=== PATIENT | female | born 1945 | race Caucasian/White ===

== ENCOUNTER → 2019-03-30 10:39 | Outpatient (CLI) | payer MEDICARE, SELFPAY ==
--- NOTE | 2019-03-30 10:59 | XR_ITS ---
XR DEXA axial skeleton HISTORY: ITS.REASON: OSTEOPENIA ORDERING PHYSICIAN: Rojas Browning MD PATIENT AGE: 74 years COMPARISON: None FINDINGS: There are degenerative changes in the lumbar spine causing false elevation of the bone measurement. The BMD measured at the left femoral neck is 0.787 g/cm squared with a T score of -1.8. This is considered Osteopenic according to the World Health Organization criteria. Fracture risk is mild to moderate. Treatment is advised. IMPRESSION: Osteopenia.
== END ==
PROVIDERS: PCP Family Medicine; Visit Provider Family Medicine
DX: M85.89 Other specified disorders of bone density and structure, multiple sites (principal)
CPT/HCPCS: 77080

== ENCOUNTER → 2019-11-30 10:24 | Outpatient (CLI) | payer MEDICARE, SELFPAY ==
--- NOTE | 2019-11-30 10:30 | XR_ITS ---
PROCEDURE: XR LUMBAR SPINE MIN 4V CLINICAL INDICATION: SIJ PAIN Left-sided low back pain COMPARISON: No exams were available for comparison FINDINGS: Mild lumbar scoliosis convex left with multilevel degenerative disc disease with the lower thoracic spine, thoracolumbar junction, L2-L3, L3-L4, L4-5, and L5-S1, there is 5 mm anterolisthesis of L4 on L5. Facet arthritic changes are present at L4 and L5. There is prominent sclerosis of the endplates at L3 and L4.. No acute fracture or dislocation. IMPRESSION: Multilevel lumbar spondylosis with degenerative disc disease and facet arthritic change and levoscoliosis Dictated by: Allan Fernandez MD 11/30/2019 10:44 Electronically signed by Allan Fernandez MD in [facility] 11/30/2019 10:44
== END ==
PROVIDERS: PCP Family Medicine; Visit Provider Family Medicine
DX: M53.3 Sacrococcygeal disorders, not elsewhere classified (principal)
CPT/HCPCS: 72110

== ENCOUNTER 2019-12-10 10:00 | Outpatient (RCR) | payer MEDICARE, SELFPAY ==
--- NOTE | 2019-12-10 11:36 | HMH.PTOPEV ---
PT Outpatient Evaluation Rehab PT Outpatient Evaluation Start: 12/10/19 10:08 Freq: Status: Active Protocol: Document 12/10/19 11:24 KARAN (Rec: 12/10/19 11:35 PHORNE [id number]) Electronically Signed By Dawson Schultz, PT 12/10/19 11:24 Outpatient Therapy Subjective History Subjective History Pt is 74 yowf who presents with L post hip/low back pain x ~ 2-3 wks with insidious onset of symptoms. She had X- ray performed which shows L4 on L5 anteriolisthesis, DDD, and lumbar scoliosis convex L. She reports pain is intermittent and worse with transfers or walking. She reports no c/o numbness or tingling. She has PMH of HTN and osteopenia. Chief Complaint Pain,Stiff Symptom Type Ache,Sharp Symptoms Relieved By Rest/Positioning Symptoms Aggravated By Walking Prior Functional Limitations None Current Functional Limitations Standing,Sitting,Recreation Activity,Walking Symptom Description Intermittent,Activity Dependent Level of pain today (0-10) 0 Pain scale - at its worst (0-10) 7 Lumbopelvic Eval Assistive device Assistive Devices Straight Cane Palapation tenderness left buttock tenderness Yes Lumbar/Sacral Palpation Findings Tenderness Accessory Movement L-spine Vertebrae Accessory Movements Central P/A [place] that Elicit Symptoms L4 bilateral L5 bilateral S1 bilateral Range of Motion Lumbar Spine Active Flexion Range of 0-55 Motion (degrees) Lumbar Spine Active Extension Range of 0-5 Motion (degrees) Left Lumbar Spine Lateral Flexion Active 0-10 Range of Motion (degrees) Right Lumbar Spine Lateral Flexion 0-10 Active Range of Motion (degrees) Manual Muscle Test Bilateral Knee Extension Strength Grade 5 Normal Knee Flexion Strength Grade 5 Normal Hip Flexion Strength Grade 4 Good Hip Abduction Strength Grade 4 Good Extensor Hallucis Longus Strength Grade 5 Normal Ankle Dorsiflexion Strength Grade 5 Normal Gastronemius/Soleus Strength Grade 5 Normal Special Tests Hip Scouring (Quadrant) Test Negative Left,Negative Right Hip Yemi (RYNE) Test Negative Left,Negative Right Hip Piriformis Test Negative Right,Positive Left Hip Bowstring (Cram) Test Positive Left,Positive Right
== END 2019-12-10 10:20 | disposition home or self-care (01) ==
LOC: PT 10:00
PROVIDERS: PCP Family Medicine; Visit Provider Family Medicine
DX: M53.3 Sacrococcygeal disorders, not elsewhere classified (principal)
CPT/HCPCS: 97010; 97014; 97110; 97163; G0283

== ENCOUNTER 2020-02-25 10:00 | Outpatient (RCR) | payer MEDICARE, SELFPAY | END 2020-02-25 10:05 | disposition home or self-care (01) | LOC: PT 10:00 | PROVIDERS: PCP Family Medicine; Visit Provider Orthopaedic Surgery | DX: S42.201D Unspecified fracture of upper end of right humerus, subsequent encounter for fracture with routine healing (principal); S62.102D Fracture of unspecified carpal bone, left wrist, subsequent encounter for fracture with routine healing | CPT/HCPCS: 97010; 97014; 97033; 97110; 97140; 97163; 97164; 97530; G0283 ==

== ENCOUNTER → 2020-11-03 11:20 | Outpatient (CLI) | payer MEDICARE, SELFPAY ==
[2020-11-03 12:43] LABS: Coronavirus 19 IgG Antibody Negative (Negative); Coronavirus 19 IgM Antibody Negative (Negative)
== END ==
PROVIDERS: Visit Provider Internal Medicine Gastroenterology
DX: Z01.812 Encounter for preprocedural laboratory examination (principal); Z20.822 Contact with and (suspected) exposure to COVID-19; Z12.11 Encounter for screening for malignant neoplasm of colon; Z86.010 Personal history of colon polyps
CPT/HCPCS: 36415; 86328; 88305

== ENCOUNTER 2020-11-04 08:12 | Day surgery (SDC) | payer MEDICARE, SELFPAY ==
[2020-10-27 13:52] VITALS: BMI 29.2
[2020-11-04 09:05] VITALS: BP 169/75; PULSE 95; RESP 18; TEMP 36.5; O2SAT 97
[2020-11-04 09:43] VITALS: O2SAT 97
[2020-11-04 10:05] VITALS: BP 112/50; PULSE 74; RESP 16; TEMP 36.3; O2SAT 98
--- NOTE | 2020-11-04 10:06 | HMH.PROC ---
[facility] Procedure Note Procedure Note:: Colonoscopy Procedure Report: Colonoscopy with cold snare polypectomy Endoscopist: Josh Castro II, MD Referring physician: Yassine Browning MD Date of Procedure: November 04, 2020 Equipment: Olympus 180 variable stiffness pediatric colonoscope Sedation: MAC sedation Indication: Mrs. Gamino is a 75-year-old female who is here for follow-up screening/surveillance colonoscopy. The patient does state that her brother had colon cancer at the age of 72. She had a colonoscopy in 2006 and had a single polyp (tubular adenoma) removed. Her last colonoscopy with co in November 2015 revealed a single polyp (hyperplastic polyp) removed. She reports no abdominal pain, weight loss, change in her bowel habits or rectal bleeding. Procedure: Prior to the procedure, a history and physical exam was performed, and patient's medications and allergies were reviewed. The risks, benefits and alternatives of the sedation and procedure were discussed with the patient. All questions were answered and informed consent was obtained. The patient was brought to the procedure room. Patient identification and proposed procedure were verified by the physician and the nurse. The patient was placed in a left lateral decubitus position and the scope was passed under direct vision. Throughout the procedure, the patient's blood pressure, pulse, and oxygen saturations were monitored continuously. The colonoscopy was accomplished without difficulty. The patient tolerated the procedure well. Findings: On digital rectal examination there was normal rectal tone. There were no external hemorrhoids. The colonoscope was introduced through the anal canal to the rectum and advanced to the cecum. The ileocecal valve and appendiceal orifice were identified. The scope was advanced a short distance into the ileum which appeared grossly normal. The scope was then withdrawn into the colon. The cecum was normal. There was 2 diminutive polyps in the ascending colon that were 3 and 4 mm both removed via cold snare polypectomy. The remaining transverse, descending, sigmoid and rectum were grossly normal. There were no mucosal abnormalities identified. Upon retroflexion within the rectum there were grade 1 internal hemorrhoids.The preparation was excellent throughout with [place] Preparation Score of 9. The cecal time was 12 minutes. Impression: 1. Diminutive colonic polyps x2 2. Grade 1 internal hemorrhoids Plan: I will follow up the polyp histology. If these are non-adenomatous polyps, I do not feel that she will require any further preventive/surveillance colonoscopy.
[2020-11-04 10:15] VITALS: BP 137/88; PULSE 85; RESP 16; TEMP 36.3; O2SAT 97
[2020-11-04 10:25] VITALS: BP 151/81; PULSE 73; RESP 16; TEMP 36.3; O2SAT 96
[2020-11-04 10:40] VITALS: BP 161/58; PULSE 68; RESP 18; TEMP 36.3; O2SAT 96
--- NOTE | 2020-11-04 10:45 | HMH.ANESCL ---
[facility] Anesthesia Checklist - Structural Data Admitted From: Home Planned Operative Procedure/s: colon Consent for Planned Operative Procedure(s) Verified: Yes Verified Documents: Surgical Consent - Anesthesia Plan Anesthesia Risk discussed: Yes Anesthesia Plan: Verified ASA Class: II Anesthesia Type: General [facility] History Medical History: Reports:: Hyperlipidemia, Hypertension Denies:: Anxiety, Cancer, Depression, Diabetes Mellitus Type 1, Diabetes Mellitus Type 2, Hiatal Hernia, Internal Pacemaker, Lung Disease, MRSA, Seizures *Have you ever received a pneumonia vaccine?: Yes *Have you received a flu vaccine this season?: Yes Other Medical History: Reports: Arthritis Anesthesia experience/problems:: none Laterality Cases: Left: Other, Right: Arthroscopy Shoulder Other Surgeries: No: Pacemaker Amputation: No Fractures: Yes - *Social History Last grade of school completed: Advanced degree Smoking Status: Never smoker Alcohol Intake: never Substance Use Type: denies use *Occupational Status:: retired Housing: house *Travel in the last 8 weeks: None - Psychiatric History Pschychiatric History:: Denies:: Anxiety, Depression Family Hx:: Cancer, Coronary Artery Disease, Hypertension
== END 2020-11-04 10:40 | disposition home or self-care (01) ==
LOC: OUTP 08:14
PROVIDERS: PCP Family Medicine; Visit Provider Internal Medicine Gastroenterology
PROC: 0DJD8ZZ Inspection of Lower Intestinal Tract, Via Natural or Artificial Opening Endoscopic (ICD-10-PCS; CPT 45378; principal; 2020-11-04 09:30)
DX: Z12.11 Encounter for screening for malignant neoplasm of colon (principal); Z80.0 Family history of malignant neoplasm of digestive organs; Z86.010 Personal history of colon polyps; K63.5 Polyp of colon; K64.0 First degree hemorrhoids; I10 Essential (primary) hypertension; E78.5 Hyperlipidemia, unspecified; K21.9 Gastro-esophageal reflux disease without esophagitis; Z79.82 Long term (current) use of aspirin; Z79.899 Other long term (current) drug therapy
CPT/HCPCS: 45385; 88305

== ENCOUNTER → 2021-12-18 09:04 | Outpatient (CLI) | payer MEDICARE, SELFPAY ==
--- NOTE | 2021-12-18 09:09 | XR_ITS ---
FINAL REPORT TECHNIQUE: Bone densitometry calculations of the lumbar spine and left hip were obtained. CLINICAL HISTORY: osteopenia FINDINGS: Using L1-4, the bone mineral density of the spine is 1.132 g/cm2, corresponding to T-score of 0.8. These values may be falsely elevated secondary to hypertrophic change. Using the left hip, the bone mineral density of the femoral neck is 0.643 g/cm2, corresponding to a T-score of -2.5. IMPRESSION: Osteoporosis: Lowest T-score is at or below -2.5. This patient's T-score meets the World Health Organization criteria for osteoporosis. Reviewed, Interpreted and Dictated by Oneil Duff III, MD Transcribed by Katja Simons Authenticated by Oneil Duff III, MD on 12/18/2021 11:12:13 AM [facility]
== END ==
PROVIDERS: PCP Family Medicine; Visit Provider Family Medicine
DX: M81.0 Age-related osteoporosis without current pathological fracture (principal)
CPT/HCPCS: 77080

== ENCOUNTER 2022-08-28 16:04 | Emergency (ER) | payer MEDICARE, SELFPAY ==
--- NOTE | 2022-08-28 16:01 | ECG_ITS ---
APPROVED REPORT Exam: Resting ECG HR:78 bpm ECG Measurements Heart Rate 78 AXES TX 219 P 63 QRSd 88 QRS 8 QT 346 T 58 QTc 379 Conclusion SINUS RHYTHM WITH FIRST DEGREE AV BLOCK LOW QRS VOLTAGE IN PRECORDIAL LEADS [QRS DEFLECTION < 1.0 mV IN CHEST LEADS] ABNORMAL ECG UNCONFIRMED REPORT Electronically signed by : Caleb Zavala MD 08/30/2022 20:15:20
[2022-08-28 16:05] VITALS: BP 168/88; PULSE 88; RESP 16; TEMP 37.2; O2SAT 99; BMI 29.7
[2022-08-28 16:14] VITALS: BMI 29.7
--- NOTE | 2022-08-28 16:23 | XR_ITS ---
PROCEDURE INFORMATION: Exam: XR Chest Exam date and time: 08/28/2022 4:32 PM Age: 77 years old Clinical indication: Right-sided and left-sided; Patient HX: Chest pain under both breast TECHNIQUE: Imaging protocol: Radiologic exam of the chest. Views: 2 views. COMPARISON: No relevant prior studies available. FINDINGS: Lungs: No evidence of pneumonia or interstitial edema. Pleural spaces: Small left pleural effusion. Heart/Mediastinum: Unremarkable. No cardiomegaly. Bones/joints: Status post ORIF of right humeral fracture IMPRESSION: 1. No evidence of pneumonia or interstitial edema. 2. Small left pleural effusion.
[2022-08-28 16:30] VITALS: BP 145/74; PULSE 74; RESP 16; O2SAT 98
[2022-08-28 16:39] LABS: Basophils # 0.1 K/mm3 (0-0.2); Basophils % 0.8 % (0.1-2.0); Eosinophils # 0.1 K/mm3 (0.0-0.4); Hematocrit 40.2 % (37.0-47.0); Hemoglobin 12.8 g/dL (12.2-16.2); Lymphocytes # 1.3 K/mm3 (0.7-4.5); Lymphocytes % 13.5 % (10-50); Mean Corpuscular HGB Conc 31.8 g/dL (31.8-35.4); Mean Corpuscular Hemoglobin 30.1 pg (27.0-31.2); Mean Corpuscular Volume 94.5 fl (81-99); Mean Platelet Volume 7.7 fl (7.4-10.4); Monocytes # 0.4 K/mm3 (0.1-1.0); Neutrophils # 7.6 K/mm3 (1.8-7.8); Neutrophils % 80.7 % (37.0-80.0); Platelet Count 333 K/mm3 (142-424); Red Blood Count 4.26 M/mm3 (4.20-5.40); Red Cell Distribution Width 12.9 % (11.5-17.5); White Blood Count 9.4 K/mm3 (4.8-10.8)
[2022-08-28 16:40] LABS: Chloride 99 mmol/L (98-107); Potassium 3.9 mmoL/L (3.5-5.1); Sodium 135 mmol/L (136-145)
[2022-08-28 16:43] LABS: Anion Gap 13.9 mEq/L (5-15); Blood Urea Nitrogen 20 mg/dl (7-17); Calcium 9.8 mg/dl (8.4-10.2); Carbon Dioxide 26 mmol/L (22.0-30.0); Creatinine Clearance Estimated 44 mL/min (50-200); Estimated Glomerular Filt Rate 40 ml/min (>60); GFR (African American) 48 ML/MIN (>60); Glucose 103 mg/dl (74-100)
--- NOTE | 2022-08-28 16:59 | PC.NURSE ---
Rounded on pt at this time. Pt advised pain is in her epigastric area but has eased up. No other needs at this time. Updated on her POC
[2022-08-28 17:00] VITALS: BP 180/79; PULSE 70; RESP 16; O2SAT 98
[2022-08-28 17:14] LABS: Troponin I < 0.01 ng/ml (0.00-0.034)
[2022-08-28 17:32] VITALS: BP 142/72; PULSE 66; RESP 14; O2SAT 98
[2022-08-28 18:01] VITALS: BP 133/70; PULSE 79; RESP 20; O2SAT 97
--- NOTE | 2022-08-28 18:14 | PC.NURSE ---
rounded on pt at this time. Updated pt and son on lab results. Pt advised she was pain free at this time.
--- NOTE | 2022-08-28 18:27 | HMH.EDGENADL ---
Discharge Plan Disposition Patient Disposition: Home, Self-Care Condition: Good Prescriptions Prescriptions: No Action simvastatin 40 mg tablet 40 mg PO DAILY 30 Days Qty: 30 omeprazole 20 mg capsule,delayed release(DR/EC) 20 mg PO DAILY 30 Days Qty: 30 naproxen 500 mg tablet 500 mg PO DAILY 30 Days Qty: 30 hydrochlorothiazide 25 mg tablet 12.5 mg PO DAILY 90 Days Qty: 90 aspirin 81 MG tablet,delayed release (DR/EC) 81 mg PO DAILY risedronate 35 MG tablet 35 mg PO WEEKLY coenzyme Q10 100 MG capsule 100 mg PO DAILY Activity Restrictions/Add. Instructions Additional Instructions/Restrictions: Additional instructions for CHEST PAIN: See your physician as soon as possible for further evaluation. Return immediately if worsening chest pain, vomiting, shortness of breath, fever, coughing of blood. Clinical Impressions Clinical Impression: Atypical chest pain Instructions Patient Instructions: DI for Atypical Chest Pain Discharge ED Provider: Jerome Jones General Adult HPI General Chief complaint: Chest Pain Stated complaint: chest pain Time Seen by Provider: 08/28/22 18:30 Mode of Arrival: Ambulatory Limitations: No Limitations Description of Symptoms (Recalled from ER Triage Doc. by RN): pt advises when she woke up this am she noticed some pain under right breast. She went on to the store and the pain continued to remain constant and she felt a dull ache in her back also. Pt denies any SOA or any other symptoms. History of Present Illness HPI narrative: Complains of chest pain since 830 this morning. She says it was under her left breast. It radiated around to the right side under her right breast and around the back. Denies shortness of breath or increased pain with breathing. Denies cough or fever. Denies nausea or vomiting. She says that at one point she felt a little sweaty, but not persistently throughout the day. She saw Dr. Diggs in the office today and he sent her to the emergency department. The pain was constant all day until she arrived in the emergency department and is now gone. No prior similar pain. She has no known cardiac problems or pulmonary problems. She is a non-smoker. She does have hypertension and hyperlipidemia. She does not have diabetes. She says her mother and sister had hypertension. Her sister having a cardiac stent placed. Related Data Home Medications Medication Instructions Recorded Confirmed hydrochlorothiazide 25 mg tablet 12.5 mg PO DAILY fluid/bp 90 days 07/02/18 11/04/20 #90 tabs naproxen 500 mg tablet 500 mg PO DAILY Pain 30 days #30 07/02/18 11/04/20 tabs omeprazole 20 mg capsule,delayed 20 mg PO DAILY stomach 30 days #30 07/02/18 11/04/20 release caps simvastatin 40 mg tablet 40 mg PO DAILY Cholesterol 30 days 07/02/18 11/04/20 #30 tabs aspirin 81 mg tablet,delayed 81 mg PO DAILY Heartburn 10/27/20 11/04/20 release coenzyme Q10 100 mg capsule 100 mg PO DAILY absorption 10/27/20 11/04/20 risedronate 35 mg tablet 35 mg PO WEEKLY Osteoporosis 10/27/20 11/04/20 Allergies Allergy/AdvReac Type Severity Reaction Status Date / Time No Known Allergies Allergy Verified 08/28/22 17:45 PFSH PFS Social History Smoking Status: Never smoker second hand exposure: No alcohol intake: never substance use type: denies use current occupational status: retired Travel in the last 8 weeks: None housing: house current occupational exposures/hazards: No caffeine: Yes ROS Obtained: Yes Systems reviewed as appropriate & no additional complaints except as documented Constitutional Constitutional: Denies fever(s), Denies headache(s) and Denies weakness ENT Ears, Nose, Mouth, and Throat: Denies headache(s), Denies nasal discharge and Denies sore throat Cardiovascular Cardiovascular: Reports chest pain and Denies radiating jaw, neck or arm pain Respiratory Respiratory: Denies ernie
--- NOTE | 2022-08-28 18:35 | CT_ITS ---
PROCEDURE INFORMATION: Exam: CTA Chest With Contrast Exam date and time: 08/28/2022 6:50 PM Age: 77 years old Clinical indication: Pain; Left-sided; Additional info: Chest pain, L pleural effusion TECHNIQUE: Imaging protocol: Computed tomographic angiography of the chest with contrast. 3D rendering (Not supervised by radiologist): MIP and/or 3D reconstructed images were created by the technologist. Radiation optimization: All CT scans at this facility use at least one of these dose optimization techniques: automated exposure control; mA and/or kV adjustment per patient size (includes targeted exams where dose is matched to clinical indication); or iterative reconstruction. Contrast material: ISOVUE 370; Contrast volume: 70 ml; Contrast route: INTRAVENOUS (IV); COMPARISON: CR XR CHEST 2V 08/28/2022 4:32 PM FINDINGS: Pulmonary arteries: Pulmonary artery is normal in caliber. No evidence of filling defects to suggest pulmonary emboli. The RV: LV ratio is less than 1. Aorta: Aorta is nonaneurysmal. Lungs: Scattered regions of mosaic attenuation can be attributed to air entrapment. No evidence of airspace opacity or interlobular septal thickening. Pleural spaces: Unremarkable. No pneumothorax. No pleural effusion. Heart: There is mild atherosclerotic calcification of the coronary arteries. No cardiomegaly or pericardial effusion. The left atrial appendage is normal. Lymph nodes: No evidence of hilar or mediastinal lymphadenopathy. Bones/joints: No acute osseous abnormality. Multilevel degenerative changes of the included spine. Soft tissues: Unremarkable. IMPRESSION: 1. No pulmonary embolus. 2. No airspace or interstitial lung disease
--- NOTE | 2022-08-28 18:46 | PC.NURSE ---
PT to CT
--- NOTE | 2022-08-28 18:56 | PC.NURSE ---
pt returned from CT
[2022-08-28 20:29] LABS: Troponin I < 0.01 ng/ml (0.00-0.034)
[2022-08-28 20:32] VITALS: BP 131/71; PULSE 80; RESP 18; TEMP 36.6; O2SAT 98
== END 2022-08-28 20:34 | disposition home or self-care (01) ==
PROVIDERS: Emergency Provider Emergency Medicine
DX: R07.89 Other chest pain (principal); M54.9 Dorsalgia, unspecified; R61 Generalized hyperhidrosis; I10 Essential (primary) hypertension; E78.5 Hyperlipidemia, unspecified; J90 Pleural effusion, not elsewhere classified; Z79.1 Long term (current) use of non-steroidal anti-inflammatories (NSAID); Z79.52 Long term (current) use of systemic steroids; Z79.899 Other long term (current) drug therapy; Z82.49 Family history of ischemic heart disease and other diseases of the circulatory system
CPT/HCPCS: 71046; 71275; 80048; 84484; 85025; 93005; 96360; 99285; Q9967

== ENCOUNTER → 2023-09-02 13:01 | Outpatient (CLI) | payer MEDICARE, SELFPAY ==
--- NOTE | 2023-09-02 13:04 | US_ITS ---
FINAL REPORT TECHNIQUE: Ultrasound images of the kidneys and bladder were obtained. CLINICAL HISTORY: RENAL INSUFFICIENCY FINDINGS: The right kidney measures 10.1 cm in length. It is normal in echogenicity. There is no hydronephrosis. The left kidney measures 10.1 cm in length. It is normal in echogenicity. There is no hydronephrosis. The spleen is unremarkable. IMPRESSION: Unremarkable exam. Reviewed, Interpreted and Dictated by Rojas Guzmán MD Transcribed by Jaimie Witt Authenticated and [facility]
== END ==
PROVIDERS: PCP Family Medicine; Visit Provider Family Medicine
DX: N28.9 Disorder of kidney and ureter, unspecified (principal)
CPT/HCPCS: 76770

== ENCOUNTER 2023-12-26 13:00 | Outpatient (RCR) | payer MEDICARE, SELFPAY ==
--- NOTE | 2023-12-09 14:00 | HMH.PTOPEV ---
PT Outpatient Evaluation Rehab PT Outpatient Evaluation Start: 12/09/23 12:56 Freq: Status: Active Protocol: Document 12/09/23 12:56 EMERY (Rec: 12/09/23 14:00 EMERY [id number]) E-signed By Alyce Hoyt, PT Outpatient Therapy Subjective History Subjective History Pt is a 78 y/o female who reports onset of left-sided low back pain and posterolateral hip pain ~3 weeks ago. Pt reports onset of pain following cleaning involving sweeping and lifting a litter box. Pt states pain will occasionally radiate down the left leg to her ankle mostly at night time often waking her up. Pt denies numbness/tingling, b/b dysfunction, n/v, fever, or night sweats. Pt denies having recent imaging of the low back. Pt reports she was prescribed muscle relaxers which she states does seem to help. Pt reports pain is aggravated by standing up from a chair, prolonged standing/ walking, bending, and lifting. Pt states she bought a back brace she has been wearing which she states decreases pressure in her low back with prolonged walking. Pt reports she has been using a cane due to balance issues, states she fell 4 years ago and is fearful of falling. Medical History: Osteoporosis, Hypertension, Hyperlipidemia New diagnosis of cancer in past 12 No months? Chief Complaint Pain Symptom Type Ache,Sharp,Dull,Shooting Symptoms Relieved By Rest/Positioning,Heat,Ice, Prescription Meds Symptoms Aggravated By Standing,Bending/Stooping, Physical Activity,Walking, Lifting Prior Functional Limitations None Current Functional Limitations Lifting,Housework,Sleeping, Standing,Squatting,Walking Symptom Description Constant but Variable Level of pain today (0-10) 6 Pain scale - at its best (0-10) 1 Pain scale - at its worst (0-10) 8 Lumbopelvic Eval Assistive device Assistive Devices Straight Cane Palapation tenderness bilateral lumbar spinal tenderness Yes paraspinal tenderness Yes Lumbar/Sacral Palpation Findings Tenderness Lumbar/Sacral Palpation Overall Comment 3/4 TTP of L piriformis, greater trochanter, and glute med/min Accessory Movement L-spine Vertebrae Accessory Movements Central P/A [place] that Elicit Symptoms L3 bilateral L4 bilateral L5 bilateral Range of Motion Lumbar Spine Active Flexion Range of 75 Motion (degrees) Lumbar Spine Active Extension Range of 10 Motion (degrees) Left Lumbar Spine Lateral Flexion Active 10 Range of Motion (degrees) Right Lumbar Spine Lateral Flexion 15 Active Range of Motion (degrees) Manual Muscle Test Bilateral Knee Extension Strength Grade 5 Normal Knee Flexion Strength Grade 5 Normal Hip Flexion Strength Grade 4- Good- Hip Abduction Strength Grade 4- Good- Hip Adduction Strength Grade 4- Good- Hip Extension Strength Grade 3+ Fair+ Ankle Dorsiflexion Strength Grade 5 Normal DTR Rt Patellar 2+ Lt Patellar 2+ Rt Gastroc/Soleus 2+ Lt Gastroc/Soleus 2+ Altered Sensation Bilateral Comment equal and intact to light touch sensation bilaterally Special Tests Hip Yemi (RYNE) Test Positive Left,Positive Right Unilateral Straight Leg Raise (Lasegue) Negative Right,Positive Left Test Oswestry Index Section 1 Pain Intensity The pain is moderate and does not vary much Section 2 Personal Care (Washing,Dresing) my way of washing or dressing even though it causes some pain Section 3 Lifting lifting heavy weights off the floor, but I can manage light to medium Section 4 Walking I cannot walk more than 1/4 mile without increasing pain Section 5 Sitting Pain prevents me from sitting for more than 1/2 hour Section 6 Standing I cannot stand more than 10 minutes without increasing pain Section 7 Sleeping I get pain in bed, but it does not prevent me from sleeping well Section 8 Social Life Pain has no significant effect on my social life apart from limiting Section 9 Traveling I get some pain when traveling , but none of my usual forms of travel m Section 10 Changing Degreee of Pain My pain seems to be getting better, but improvement is slow Score and Risk Level Oswestry Sc 25 Oswestry Risk Level Severe Disability Outpatient Therapy Assessment Impairments Problems/Impairmments Palpation Tenderness,Impaired Range of Motion,Impaired Strength,Impaired Walking, Impaired Standing,Impaired Lifting,Impaired Household Care,Impaired Stair Climbing, Impaired Squatting,Impaired Bending,Subjective C/O Pain, Impaired Self Care/Self Management Prognosis Rehab Potential Good Clinical Impression Consistent with Diagnosis Yes Short Term Goals Number of Weeks 3 Improve Oswestry Score Yes: Improve score to 20 or less to improve overall QOL Decrease Subjective C/O Pain Yes: Improve pain at worst to 6/10 to improve overall QOL Improve Self Care/Self Management Yes Patient to be Ind w/ HEP Yes Halfway Goals Number of Weeks 6 Decreased Palpation Tenderness Yes: / TTP of left lumbar/ gluteal mm Increase Range of Motion Yes: Improve lumbar flex AROM to 80, ext to 15, LF to 15-20 Increase Strength Yes: Improve BLE MMT to 4+/5 grossly to assist with function Improve Oswestry Score Yes: Improve score to 15 to improve overall QOL Decrease Subjective C/O Pain Yes: Improve pain at worst to 4/10 to improve overall QOL Outpatient Therapy Plan of Care Treatment Plan May Include Therapeutic Exercise Including Home Yes Exercise Program Manual Therapy Techniques Yes Neuromuscular Re-education Yes Therapeutic Activities to Return to Yes Previous Functional/Work Level ADL/Self Care Education Yes Mechanical Traction Yes Dry Needling Yes Thermal Modalities Yes Electrical Stimulation Yes Ultrasound/Phonophoresis Yes Iontophoresis Yes Massage Yes Group Therapy for Medicare Yes Eval/Re-Eval Yes Frequency Times per week 2 Duration Number of Weeks 4-6 Addendums This patient is a candidate for social No or vocational rehab? Patient/Guardian verbally acknowledges Yes understanding of treatment program and consents to further treatment? Patient/Guardian verbally acknowledges Yes understanding of diagnosis, prognosis and goals for treatment? Eval Complexity PT Charges 59309 - Low Complexity Shoulder/Elbow Eval Shoulder Objective Measurements Elbow Objective Measurements PHYSICIAN CERTIFICATION: I certify the specified therapy services for Shruti Shahid are required, authorized, and reviewed every 30 days.
== END 2023-12-26 14:20 | disposition home or self-care (01) ==
LOC: PT 13:00
PROVIDERS: Visit Provider Physician Assistant
DX: G57.02 Lesion of sciatic nerve, left lower limb (principal)
CPT/HCPCS: 97010; 97014; 97110; 97163; 97530; G0283

== ENCOUNTER 2024-06-17 12:55 | Outpatient (CLI) | payer MEDICARE, SELFPAY ==
--- NOTE | 2024-06-17 13:01 | CA_ITS ---
FINAL REPORT TECHNIQUE: Color Doppler, duplex Doppler and compression sonography of the left lower extremity deep venous systems was performed. CLINICAL HISTORY: COMPARISON: None FINDINGS: There is no evidence of left leg deep venous thrombosis from the level of the groin to the calf. The veins are patent and compressible. IMPRESSION: No evidence of deep venous thrombosis left lower extremity. Reviewed, Interpreted and Dictated by Oneil Duff III, MD Transcribed by Shalyee Navarro Authenticated and [facility]
== END 2024-06-17 23:59 | disposition home or self-care (01) ==
LOC: RT 12:56
PROVIDERS: PCP Family Medicine; Visit Provider Family Medicine
DX: M79.605 Pain in left leg (principal)
CPT/HCPCS: 93971